=== PATIENT | female | born 1990 | race Two or more races ===

== ENCOUNTER 2024-11-14 16:05 | Inpatient (IN) | payer OTHER ==
[~2024-11-14] VITALS: Ht 170.2 cm; Wt 70.8 kg
[2024-11-14 16:21] VITALS: BP 124/83
[2024-11-14 16:28] VITALS: BP 124/83
[2024-11-14] MEDS ORDERED: MAGNESIUM SULFATE IN WATER 500 ML IV SCH (16:30)
[2024-11-14] MEDS ORDERED: RINGERS SOLUTION,LACTATED 1,000 ML IV SCH (16:30)
[2024-11-14] MEDS ORDERED: MAGNESIUM SULFATE IN WATER 4 GM/100 ML PIGGYBACK IV ONE (16:30)
[2024-11-14 17:24] LABS: PH,URINE 7.5 (5.0-8.0); URINE APPEARANCE Cloudy; URINE BILIRRUBIN Negative (NEGATIVE); URINE BLOOD Large; URINE COLOR Yellow; URINE GLUCOSE Negative (NEGATIVE); URINE KETONE Negative (NEGATIVE); URINE LEUKOCYTE Trace; URINE NITRATE Negative; URINE PROTEIN Negative (NEGATIVE)
[2024-11-14 17:25] LABS: HEMATOCRIT 33.5 % (36.0-45.00); MEAN CELL VOLUME 91.1 fL (80.00-100.00); MEAN CORPUSCULAR HEMOGLOBIN 32.5 pg (27.00-32.0); MEAN CORPUSCULAR HGB CONC 35.7 g/dl (32.0-36.0); PLATELET COUNT 164 K/uL (150-450); RED BLOOD COUNT 3.68 M/uL (4.00-6.00); RED CELL DISTRIBUTION WIDTH 13.7 % (11.5-14.5)
[2024-11-14] MEDS ORDERED: FOLIC ACID0.8 M1 PO (17:26)
[2024-11-14] MEDS ORDERED: PRENATABS RX T1 EACH PO (17:26)
[2024-11-14] MEDS ORDERED: KEPPRA XR500 MG PO (17:27)
[2024-11-14 17:29] LABS: URINE BACTERIA 418.5 uL (0.0-1933); URINE RBC 9.1 uL (0.0-20.8); URINE WBC 14.4 uL (0.0-23.2)
[2024-11-14 17:48] LABS: FIBRINOGEN 467 mg/dL (187.0-446.0); INR < 0.93; PROTHROMBIN TIME 9.9 SECONDS (9.0-11.5)
[2024-11-14 17:50] LABS: ALBUMIN 2.7 gm/dL (3.4-5.0); BILIRUBIN TOTAL 0.19 mg/dL (0.3-1.2); CREATININE SERUM 0.67 mg/dL (0.55-1.02); GFR 101.36; GLOBULINA 3.2 G/DL (2.4-3.5); POTASSIUM 3.78 mEq/L (3.5-5.1); TOTAL PROTEIN 5.9 gm/dL (6.4-8.2)
[2024-11-14 19:50] VITALS: BP 114/70
[2024-11-14] MEDS ORDERED: LevETIRAcetam 500 MG TAB. PO ONE (20:30)
[2024-11-14 23:09] VITALS: BP 104/65
[2024-11-15 03:40] VITALS: BP 113/68
[2024-11-15 05:58] VITALS: BP 118/73; O2SAT 97
[2024-11-15] MEDS ORDERED: ACETAMINOPHEN 500 MG GEL..CAP PO PRN (07:00)
[2024-11-15] MEDS ORDERED: BETAMETHASONE ACETATE,SOD PHOS 30 MG/5 ML ML IM SCH (09:00)
[2024-11-15 11:02] VITALS: BP 117/73
[2024-11-15 15:16] VITALS: BP 115/69
[2024-11-15 18:58] VITALS: BP 118/63
[2024-11-15] MEDS ORDERED: MAGNESIUM SULFATE IN WATER 0.04 GM/ML IV.SOLN IV ONE (21:53)
[2024-11-15 23:17] VITALS: BP 119/66
[2024-11-16 03:12] VITALS: BP 115/68
[2024-11-16 07:19] VITALS: BP 112/65
[2024-11-16 10:51] LABS: HEMATOCRIT 32.5 % (36.0-45.00); HEMOGLOBIN 11.4 g/dL (12.0-15.00); MEAN CELL VOLUME 92.1 fL (80.00-100.00); MEAN CORPUSCULAR HEMOGLOBIN 32.2 pg (27.00-32.0); MEAN CORPUSCULAR HGB CONC 34.9 g/dl (32.0-36.0); PLATELET COUNT 143 K/uL (150-450); RED BLOOD COUNT 3.53 M/uL (4.00-6.00); RED CELL DISTRIBUTION WIDTH 13.9 % (11.5-14.5)
[2024-11-16 11:16] VITALS: BP 111/66
[2024-11-16 12:52] LABS: INR < 0.93; PARTIAL THROMBOPLASTIN TIME 24.8 SECONDS (22.0-34.0); PROTHROMBIN TIME 9.8 SECONDS (9.0-11.5)
[2024-11-16 13:12] VITALS: BP 137/77
[2024-11-16 13:28] LABS: FIBRINOGEN 495 mg/dL (187.0-446.0)
[2024-11-16 14:58] VITALS: BP 120/67
[2024-11-16] MEDS ORDERED: NIFEDIPINE 30 MG TAB.SA.OSM PO SCH (17:00)
[2024-11-16] MEDS ORDERED: SIMETHICONE 125 MG CAPSULE PO SCH (23:45)
[2024-11-17 01:37] VITALS: BP 102/62
[2024-11-17 07:50] VITALS: BP 126/72
[2024-11-17 15:50] VITALS: BP 132/62
[2024-11-17 20:13] VITALS: BP 131/71
[2024-11-18] VITALS: BP 117/69
[2024-11-18 08:00] VITALS: BP 102/63
== END 2024-11-18 09:26 | disposition home or self-care (01) | DRG 833 ==
LOC: LDR 16:05 → OB/GYN 11-16 12:49
PROVIDERS: ADMIT Obstetrics & Gynecology Gynecology; ATTEND Obstetrics & Gynecology Gynecology
PROC: 4A1HXCZ Monitoring of Products of Conception, Cardiac Rate, External Approach (ICD-10-PCS; principal; 2024-11-14)
DX: O46.8X2 Other antepartum hemorrhage, second trimester (principal); Z3A.26 26 weeks gestation of pregnancy

== ENCOUNTER 2024-11-19 11:23 | Inpatient (IN) | payer OTHER ==
[~2024-11-19] VITALS: Ht 170.2 cm; Wt 0.5 kg
[2024-11-19 10:53] VITALS: BP 128/73
[~2024-11-19 11:23] MED LIST: FOLIC ACID0.8 M1 PO; KEPPRA XR500 MG PO; PRENATABS RX T1 EACH PO
[2024-11-19] MEDS ORDERED: RINGERS SOLUTION,LACTATED 1,000 ML IV SCH (11:30)
[2024-11-19] MEDS ORDERED: PNV,CALCIUM 72/IRON/FOLIC ACID 1 TAB TABLET PO SCH (11:30)
[2024-11-19] MEDS ORDERED: MAGNESIUM SULFATE IN WATER 4 GM/100 ML PIGGYBACK IV ONE (12:21)
[2024-11-19] MEDS ORDERED: MAGNESIUM SULFATE IN WATER 0.04 GM/ML IV.SOLN IV ONE (12:21)
[2024-11-19] MEDS ORDERED: MAGNESIUM SULFATE IN WATER 100 ML IV SCH (12:30)
[2024-11-19] MEDS ORDERED: MAGNESIUM SULFATE IN WATER 500 ML IV SCH (12:30)
[2024-11-19 12:54] LABS: HEMATOCRIT 34.3 % (36.0-45.00); HEMOGLOBIN 11.9 g/dL (12.0-15.00); MEAN CELL VOLUME 92.1 fL (80.00-100.00); MEAN CORPUSCULAR HEMOGLOBIN 31.9 pg (27.00-32.0); MEAN CORPUSCULAR HGB CONC 34.6 g/dl (32.0-36.0); PLATELET COUNT 139 K/uL (150-450); RED BLOOD COUNT 3.72 M/uL (4.00-6.00); RED CELL DISTRIBUTION WIDTH 13.6 % (11.5-14.5)
[2024-11-19 13:21] LABS: INR < 0.93; PARTIAL THROMBOPLASTIN TIME 24.1 SECONDS (22.0-34.0); PROTHROMBIN TIME 9.8 SECONDS (9.0-11.5)
[2024-11-19] MEDS ORDERED: PNV,CALCIUM 72/IRON/FOLIC ACID 1 TAB TABLET PO NR (13:50)
[2024-11-19 14:04] LABS: ALBUMIN 2.8 gm/dL (3.4-5.0); BILIRUBIN TOTAL 0.25 mg/dL (0.3-1.2); CALCIUM 9.2 mg/dL (8.5-10.1); CREATININE SERUM 0.43 mg/dL (0.55-1.02); GFR 169.1; GLOBULINA 3.1 G/DL (2.4-3.5); POTASSIUM 4.03 mEq/L (3.5-5.1); TOTAL PROTEIN 5.9 gm/dL (6.4-8.2)
[2024-11-19 15:15] VITALS: BP 120/69
[2024-11-19] MEDS ORDERED: CETIRIZINE HCL 5 MG/5 ML ML PO SCH (17:00)
[2024-11-19 19:31] VITALS: BP 124/76
[2024-11-19] MEDS ORDERED: LevETIRAcetam 500 MG TAB. PO SCH (20:00)
[2024-11-19 23:30] VITALS: BP 123/70
[2024-11-20 03:06] VITALS: BP 117/76
[2024-11-20 05:57] VITALS: BP 114/71; O2SAT 96
[2024-11-20] MEDS ORDERED: ACETAMINOPHEN 500 MG GEL..CAP PO ONE (07:17)
[2024-11-20] MEDS ORDERED: ACETAMINOPHEN 500 MG GEL..CAP PO PRN (07:45)
[2024-11-20 11:25] VITALS: BP 112/65
[2024-11-20 15:15] VITALS: BP 122/75
[2024-11-20 19:55] VITALS: BP 118/72
[2024-11-20 23:18] VITALS: BP 112/69
[2024-11-21 04:15] VITALS: BP 113/76
[2024-11-21 05:59] VITALS: BP 108/67; O2SAT 97
[2024-11-21 06:08] LABS: HEMATOCRIT 30.5 % (36.0-45.00); HEMOGLOBIN 10.7 g/dL (12.0-15.00); MEAN CELL VOLUME 92.3 fL (80.00-100.00); MEAN CORPUSCULAR HEMOGLOBIN 32.3 pg (27.00-32.0); RED CELL DISTRIBUTION WIDTH 13.6 % (11.5-14.5)
[2024-11-21 06:20] LABS: PLATELET COUNT 120 K/uL (150-450)
[2024-11-21 07:23] LABS: FIBRINOGEN 435 mg/dL (187.0-446.0); INR < 0.93; PARTIAL THROMBOPLASTIN TIME 24.1 SECONDS (22.0-34.0); PROTHROMBIN TIME 9.6 SECONDS (9.0-11.5)
[2024-11-21] MEDS ORDERED: NIFEDIPINE 30 MG TAB.SA.OSM PO SCH (09:00)
[2024-11-21 11:14] VITALS: BP 132/76; O2SAT 98
[2024-11-21 15:20] VITALS: BP 123/73
[2024-11-21 17:28] VITALS: BP 139/56
[2024-11-22 00:44] VITALS: BP 134/77
[2024-11-22 08:25] VITALS: BP 113/67
[2024-11-22 17:44] VITALS: BP 142/80
[2024-11-23 00:14] VITALS: BP 126/75
[2024-11-23 02:23] VITALS: BP 124/80; O2SAT 99
[2024-11-23] MEDS ORDERED: MAGNESIUM SULFATE IN WATER 50 ML IV SCH (02:45)
[2024-11-23] MEDS ORDERED: MAGNESIUM SULFATE IN WATER 4 GM/100 ML PIGGYBACK IV SCH (02:45)
[2024-11-23] MEDS ORDERED: MAGNESIUM SULFATE IN WATER 0.04 GM/ML IV.SOLN IV ONE (02:47)
[2024-11-23 07:48] VITALS: BP 119/69
[2024-11-23] MEDS ORDERED: MORPHINE SULFATE 4 MG/ML VIAL IV ONE ×3 (08:30→21:15)
[2024-11-23] MEDS ORDERED: MAGNESIUM SULFATE IN WATER 500 ML IV SCH (11:30)
[2024-11-23 11:38] VITALS: BP 120/77
[2024-11-23] MEDS ORDERED: IRON FUM,PS/FOLIC ACID/VITC/B3 1 CAP CAPSULE PO NR (12:00)
[2024-11-23 15:18] VITALS: BP 131/77
[2024-11-23] MEDS ORDERED: METOCLOPRAMIDE HCL 5 MG/ML VIAL ONE (18:24)
[2024-11-23] MEDS ORDERED: CEFAZOLIN SODIUM 1,000 MG VIAL ONE (18:24)
[2024-11-23] MEDS ORDERED: OXYTOCIN 10 UNITS/ML VIAL ONE (18:40)
[2024-11-23] MEDS ORDERED: ERYTHROMYCIN BASE OPHT 1GM EACH TUBE OP ONE (18:40)
[2024-11-23] MEDS ORDERED: CITRIC ACID/SODIUM CITRATE 30 ML BLIST.PACK PO ONE (19:15)
[2024-11-23] MEDS ORDERED: METOCLOPRAMIDE HCL 5 MG/ML VIAL IV ONE (19:15)
[2024-11-23] MEDS ORDERED: CEFAZOLIN SODIUM 1,000 MG VIAL IV ONE (19:15)
[2024-11-23] MEDS ORDERED: ACETAMINOPHEN 325 MG TABLET PO SCH (19:51)
[2024-11-23] MEDS ORDERED: MORPHINE SULFATE 4 MG/ML CARTRIDGE IV PRN (20:00)
[2024-11-23] MEDS ORDERED: OXYTOCIN 1,000 ML IV SCH (20:00)
[2024-11-23 21:31] VITALS: BP 120/72
[2024-11-23] MEDS ORDERED: PROMETHAZINE HCL 25 MG/ML AMPUL IV PRN (22:30)
[2024-11-23] MEDS ORDERED: MEPERIDINE HCL/PF 25 MG/ML VIAL IV PRN (22:30)
[2024-11-24 00:20] VITALS: BP 131/73
[2024-11-24] MEDS ORDERED: [UNRECOGNIZED DRUG - OTHER] IV SCH (02:45)
[2024-11-24] MEDS ORDERED: MAGNESIUM SULFATE IN WATER 500 ML IV SCH (02:45)
[2024-11-24] MEDS ORDERED: MAGNESIUM SULFATE IV SCH (02:45)
[2024-11-24] MEDS ORDERED: ACETAMINOPHEN 325 MG TABLET PO SCH (03:08)
[2024-11-24 07:37] LABS: HEMOGLOBIN 10.2 g/dL (12.0-15.00); MEAN CORPUSCULAR HEMOGLOBIN 32.9 pg (27.00-32.0); MEAN CORPUSCULAR HGB CONC 36.5 g/dl (32.0-36.0); PLATELET COUNT 130 K/uL (150-450); RED BLOOD COUNT 3.11 M/uL (4.00-6.00); RED CELL DISTRIBUTION WIDTH 13.5 % (11.5-14.5)
[2024-11-24 08:00] VITALS: BP 132/76
[2024-11-24] MEDS ORDERED: IRON FUM,PS/FOLIC ACID/VITC/B3 1 CAP CAPSULE PO SCH (09:00)
[2024-11-24 14:59] VITALS: BP 128/80
[2024-11-25 00:54] VITALS: BP 133/79
[2024-11-25] MEDS ORDERED: OxyCODONE HCL 5 MG TABLET (ROXICODONE) PO PRN (06:00)
[2024-11-25 07:46] VITALS: BP 122/77
[2024-11-25 15:24] VITALS: BP 137/87
[2024-11-26] VITALS: BP 119/75
[2024-11-26 07:04] LABS: HEMATOCRIT 30.3 % (36.0-45.00); MEAN CELL VOLUME 91.7 fL (80.00-100.00); MEAN CORPUSCULAR HEMOGLOBIN 33.4 pg (27.00-32.0); MEAN CORPUSCULAR HGB CONC 36.4 g/dl (32.0-36.0); PLATELET COUNT 187 K/uL (150-450); RED BLOOD COUNT 3.31 M/uL (4.00-6.00); RED CELL DISTRIBUTION WIDTH 13.8 % (11.5-14.5)
[2024-11-26 07:33] LABS: INR < 0.93; PARTIAL THROMBOPLASTIN TIME 26.4 SECONDS (22.0-34.0); PROTHROMBIN TIME 9.6 SECONDS (9.0-11.5)
[2024-11-26 08:17] LABS: FIBRINOGEN 654 mg/dL (187.0-446.0)
[2024-11-26 08:22] VITALS: BP 96/60
== END 2024-11-26 17:32 | disposition home or self-care (01) | DRG 786 ==
LOC: OB/GYN 11:23 → LDR 11:23 → OB/GYN 11-21 12:25
PROVIDERS: Obstetrics & Gynecology; ADMIT Obstetrics & Gynecology Gynecology; ATTEND Obstetrics & Gynecology Gynecology
PROC: 4A1HXCZ Monitoring of Products of Conception, Cardiac Rate, External Approach (ICD-10-PCS; 2024-11-19)
PROC: BY4CZZZ Ultrasonography of Second Trimester, Single Fetus (ICD-10-PCS; 2024-11-20)
PROC: BU4CZZZ Ultrasonography of Uterus and Ovaries (ICD-10-PCS; 2024-11-20)
PROC: 0UPD0HZ Removal of Contraceptive Device from Uterus and Cervix, Open Approach (ICD-10-PCS; 2024-11-23)
PROC: 10D00Z1 Extraction of Products of Conception, Low, Open Approach (ICD-10-PCS; principal; 2024-11-23 18:00)
DX: O32.1XX0 Maternal care for breech presentation, not applicable or unspecified (principal); O45.8X2 Other premature separation of placenta, second trimester; O60.12X0 Preterm labor second trimester with preterm delivery second trimester, not applicable or unspecified; O26.842 Uterine size-date discrepancy, second trimester; O36.8120 Decreased fetal movements, second trimester, not applicable or unspecified; O26.852 Spotting complicating pregnancy, second trimester; Z3A.26 26 weeks gestation of pregnancy; Z37.0 Single live birth; Z30.432 Encounter for removal of intrauterine contraceptive device